=== PATIENT | male | born 1990 | race Caucasian/White ===

== ENCOUNTER 2021-06-10 15:23 | Observation (INO) ==
[2021-06-10] MEDS ORDERED: IOPAMIDOL 100 ML BOTTLE IV ONE (15:24)
[2021-06-10] MEDS ORDERED: ONDANSETRON 4 MG/2 ML VIAL IV ONE (15:48)
[2021-06-10] MEDS ORDERED: 0.9 % SODIUM CHLORIDE 1,000 ML IV ONE (15:48)
[2021-06-10] MEDS: morphine 2 MG/ML VIAL IV PRN ×2 (16:15→20:40)
[2021-06-10 16:23] LABS: Basophils # (Auto) 0.05 K/mcL (0.00-0.30); Basophils % (Auto) 0.7 % (0.0-2.0); Eosinophils # (Auto) 0.06 K/mcL (0.00-0.70); Eosinophils % (Auto) 0.8 % (0.0-7.0); Hematocrit 43.7 % (40.1-51.0); Hemoglobin 14.7 g/dL (13.7-17.5); Lymphocytes # (Auto) 0.87 K/mcL (1.50-4.80); Lymphocytes % (Auto) 11.6 % (15.5-49.0); Mean Cell Volume 82.3 fL (80.0-100.0); Mean Corpuscular HGB Conc 33.6 g/dL (31.0-36.0); Mean Platelet Volume 10.8 fL (7.4-10.4); Monocytes # (Auto) 0.94 K/mcL (0.10-0.90); Monocytes % (Auto) 12.6 % (1.0-12.0); Neutrophils % (Auto) 74.3 % (38.0-78.0); Platelet Count 217 K/mcL (140-440); RBC 5.31 M/mcL (4.63-6.08); Red Cell Distribution Width 11.9 % (11.5-14.5); WBC 7.5 K/mcL (4.5-11.0)
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
[2021-06-10 16:51] LABS: ALT/SGPT 45 U/L (<40); AST/SGOT 36 U/L (<40); Albumin 4.2 gm/dL (3.2-5.2); Albumin/Globulin Ratio 1.4 (1.0-2.3); Alkaline Phosphatase 72 U/L (39-117); Bilirubin,Total 0.5 mg/dL (0.1-1.0); Blood Urea Nitrogen 15 mg/dL (6-20); Calcium 8.8 mg/dL (8.6-10.4); Carbon Dioxide 24 mmol/L (22-30); Chloride 101 mmol/L (96-108); Glomerular Filtration Rate 88; Glucose 82 mg/dL (70-105)
[2021-06-10 18:08] LABS: Appearance,Urine CLEAR (Clear); Bilirubin,Urine Negative (Negative); Color,Urine STRAW; Culture Indicated,Urine No; Glucose,Urine (UA) Negative (Negative); Ketones,Urine Negative (Negative); Leukocyte Esterase,Urine Negative /uL (Negative); Nitrate,Urine Negative (Negative); Protein,Urine Negative (Negative); Specific Gravity,Urine 1.006 (1.000-1.035); Urine Blood 0.03 mg/dL (Negative); Urine RBC 0 /hpf (0-3); Urine Squamous Epithelial Cell 0 /hpf (0-4); Urine WBC 0 /hpf (0-4); Urobilinogen,Urine Negative
[2021-06-10] MEDS ORDERED: PIPERACILLIN SODIUM/TAZOBACTAM 3.375 GM in DEXTROSE 5% IN WATER 50 ML IV ONE (19:20)
--- NOTE | 2021-06-10 19:33 | Cat Scan Report ---
History: Right lower quadrant pain TECHNIQUE: Following injection of intravenous nonionic contrast the patient was scanned during the portal venous phase from the diaphragm through the symphysis pubis. Sagittal and coronal reformats were created. The radiation exposure was limited using dose reduction technology. FINDINGS: The liver and spleen are normal in size and homogeneous. The gallbladder is partially contracted. There are no calcified stones within the lumen. The bile ducts are nondilated. A moderate amount of ingested material is present within the stomach. This may be causing a physiologic gallbladder response. The pancreas is normal in size and homogeneous without evidence of a mass or inflammation. The adrenals and kidneys are normal. There is no kidney stone or hydronephrosis. The aorta and inferior vena cava are normal. There is no plaque formation. The distal appendix is enlarged and inflamed. It Measures 11 mm transverse dimension. No appendicolith. The base of the appendix is noninflamed. There is no evidence of abscess or perforation. The large and small intestine are otherwise normal. There are no diverticula or bowel obstruction. No adenopathy or ascites are present. No abnormality is seen in the bladder prostate or seminal vesicles. IMPRESSION: Acute appendicitis without rupture Meg Solis was called with the report Interpreted and Authenticated by: Dale Soriano 06/10/21
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
[2021-06-10] MEDS ORDERED: ONDANSETRON 4 MG/2 ML VIAL IV PRN (19:57)
[2021-06-10] MEDS: DEXTROSE 5%-1/2NS 1,000 ML IV SCH (20:40)
[2021-06-10] MEDS: PIPERACILLIN SODIUM/TAZOBACTAM 3.375 GM in DEXTROSE 5% IN WATER 50 ML IV SCH (20:48)
[2021-06-10] MEDS ORDERED: ALPRAZolam 0.25 MG TABLET PO ONE (21:55)
[2021-06-10] MEDS ORDERED: hydrOXYzine 25 MG TABLET PO ONE (21:55)
[2021-06-11] MEDS: PIPERACILLIN SODIUM/TAZOBACTAM 3.375 GM in DEXTROSE 5% IN WATER 50 ML IV SCH ×6 (03:55→21:02)
[2021-06-11] MEDS: HYDROmorphone 0.5 MG/0.5 ML SYRINGE IV PRN ×5 (04:31→15:27)
[2021-06-11] MEDS: DEXTROSE 5%-1/2NS 1,000 ML IV SCH ×3 (06:32→16:38)
[2021-06-11] MEDS ORDERED: ALPRAZolam 0.25 MG TABLET PO PRN (06:52)
[2021-06-11] MEDS ORDERED: hydrOXYzine 25 MG TABLET PO PRN (06:54)
[2021-06-11 07:26] LABS: Hemoglobin 13.9 g/dL (13.7-17.5); Mean Cell Volume 82.3 fL (80.0-100.0); Mean Corpuscular HGB Conc 34.8 g/dL (31.0-36.0); Mean Platelet Volume 10.6 fL (7.4-10.4); Platelet Count 203 K/mcL (140-440); RBC 4.86 M/mcL (4.63-6.08); Red Cell Distribution Width 11.8 % (11.5-14.5)
[2021-06-11 08:25] LABS: Blood Urea Nitrogen 11 mg/dL (6-20); Carbon Dioxide 21 mmol/L (22-30); Chloride 103 mmol/L (96-108); Glomerular Filtration Rate 99; Glucose 108 mg/dL (70-105)
[2021-06-11] MEDS ORDERED: CITALOPRAM 20 MG TABLET PO SCH ×2 (09:00)
[2021-06-11] MEDS ORDERED: LIDOCAINE HCL/PF 100 MG/5 ML SYRINGE IV ONE (09:48)
[2021-06-11] MEDS ORDERED: PHENYLephrine 1 MG/10 ML SYRINGE (ANEST) ONE (09:48)
[2021-06-11] MEDS ORDERED: DEXAMETHASONE 10 MG/ML VIAL ONE (09:48)
[2021-06-11] MEDS ORDERED: TRANEXAMIC ACID 1,000 MG/10 ML VIAL ONE (09:48)
[2021-06-11] MEDS ORDERED: MIDAZOLAM 5 MG/5 ML VIAL ONE (09:48)
[2021-06-11] MEDS ORDERED: GLYCOPYRROLATE 0.2 MG/ML VIAL IV ONE (09:48)
[2021-06-11] MEDS ORDERED: ONDANSETRON 4 MG/2 ML VIAL ONE (09:48)
[2021-06-11] MEDS ORDERED: KETAMINE 50 MG/ML Syringe (ANEST) IV ONE (09:48)
[2021-06-11] MEDS ORDERED: PROPOFOL 200 MG/20 ML VIAL IV ONE (09:48)
[2021-06-11] MEDS ORDERED: ROCURONIUM 10 MG/ML ML IV ONE (09:48)
[2021-06-11] MEDS ORDERED: SUGAMMADEX SODIUM 200 MG/2 ML VIAL IV ONE (09:48)
[2021-06-11] MEDS ORDERED: MAGNESIUM SULFATE 2 GM/50 ML BAG IV ONE (09:48)
[2021-06-11] MEDS ORDERED: fentaNYL 100 MCG/2 ML VIAL IV ONE ×2 (09:48→11:25)
[2021-06-11] MEDS ORDERED: BUPIVACAINE W/EPI 0.5% 50 ML VIAL IJ ONE (10:32)
[2021-06-11] MEDS ORDERED: PROMETHAZINE 25 MG/ML VIAL IM PRN (11:15)
[2021-06-11] MEDS ORDERED: IPRATROPIUM/ALBUTEROL 3 ML AMPUL.NEB NEB PRN (11:15)
[2021-06-11] MEDS ORDERED: LACTATED RINGERS 1,000 ML IV SCH (11:15)
[2021-06-11] MEDS ORDERED: ACETAMINOPHEN 1,000 MG/100 ML BAG IV ONE (11:15)
[2021-06-11] MEDS ORDERED: MEPERIDINE 25 MG/ML VIAL IV PRN (11:15)
[2021-06-11] MEDS ORDERED: KETOROLAC 30 MG/ML VIAL IV PRN (11:15)
[2021-06-11] MEDS ORDERED: BENZOCAINE/MENTHOL 1 LOZENGE PO PRN (11:15)
[2021-06-11] MEDS ORDERED: ONDANSETRON 4 MG/2 ML VIAL IV PRN (11:15)
[2021-06-11] MEDS ORDERED: MEPERIDINE 50 MG/ML VIAL IM PRN (11:15)
[2021-06-11] MEDS: fentaNYL 100 MCG/2 ML VIAL IV PRN ×4 (11:20→11:35)
[2021-06-11] MEDS ORDERED: oxyCODONE HCL 5 MG TABLET PO PRN (11:26)
[2021-06-11] MEDS ORDERED: ACETAMINOPHEN 500 MG TABLET PO PRN (11:27)
--- NOTE | 2021-06-11 11:33 | Brief Operative Note ---
Brief Operative Note Date of procedure: 06/11/21 Pre-op diagnosis: Acute appendicitis Post-op diagnosis: same Procedure: Laparoscopic Appendectomy Grafts/Implants: No Anesthesia: GETA Findings: mildly inflamed non gangrenous, non perforated appendix Complications: none Surgeon: Jatinder Landry Estimated blood loss (cc): 5 Specimens Removed/Pathology: other (Appendix) Condition: stable Disposition: PACU
[2021-06-11] MEDS: oxyCODONE HCL 5 MG TABLET PO PRN ×3 (15:29→22:23)
[2021-06-11] MEDS: ALPRAZolam 0.25 MG TABLET PO PRN ×2 (15:37→20:18)
--- NOTE | 2021-06-11 16:38 | EKG ---
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 Measurements Intervals [place] Rate: 81 P: 58 CT: 137 QRS: 30 QRSD: 90 T: 25 QT: 369 QTc: 429 Interpretive Statements Sinus rhythm Electronically Signed On 06-11-2021 16:37:49 PST by Alex Soriano M.D. /store/[email or web address]/[id number]
[2021-06-11] MEDS: KETOROLAC 30 MG/ML VIAL IV SCH ×2 (18:05→22:28)
[2021-06-11] MEDS: ACETAMINOPHEN 1,000 MG/100 ML BAG IV SCH (19:30)
[2021-06-11] MEDS: hydrOXYzine 25 MG TABLET PO PRN (20:18)
[2021-06-12] MEDS: PIPERACILLIN SODIUM/TAZOBACTAM 3.375 GM in DEXTROSE 5% IN WATER 50 ML IV SCH ×2 (01:20→07:35)
[2021-06-12] MEDS: oxyCODONE HCL 5 MG TABLET PO PRN ×4 (01:20→10:38)
[2021-06-12] MEDS: DEXTROSE 5%-1/2NS 1,000 ML IV SCH (01:21)
[2021-06-12] MEDS: ACETAMINOPHEN 1,000 MG/100 ML BAG IV SCH (04:25)
--- NOTE | 2021-06-12 06:51 | General Surgery Progress Note ---
SUBJECTIVE Subjective Patient information: Note initiated : 06/12/21 at 6:49 am Service Date, if different from initiated Date: [] Patient: Ganga Vargas 30 y/o M admitted on 06/10/21 for abd pain. Chief Complaint: [Acute Appendicitis post Appendectomy] Feels much better this am, pain well controlled, hoping for discharge Constitutional Vitals: Vital Signs Temp Pulse Resp BP Pulse Ox 98.3 F 79 16 96/55 96 06/12/21 04:17 06/12/21 04:17 06/12/21 04:17 06/12/21 04:17 06/12/21 04:17 Period Temp Pulse Resp BP Sys/Alliosn Pulse Ox Last 24 Hr 97.7 F-100.4 F 79-106 - 96-139/55-89 90-100 Intake and Output 06/11/21 06/12/21 06/12/21 21:59 05:59 13:59 Intake Total 340 2100 Output Total 1260 1250 Balance -920 850 Weight 223 lb 1 oz Intake & Output: Intake & Output 06/11/21 06/12/21 06/12/21 21:59 05:59 13:59 Intake Total 340 2100 Output Total 1260 1250 Balance -920 850 Weight 223 lb 1 oz Intake: IV 100 1200 Dextrose 5%-1/2Ns IV Solution 1 1000 ,000 ml @ 100 mls/hr IV .Q10H [facility] Rx#:[id number] Zosyn 3.375 gm In Dextrose 5% 100 in Water 50 ml @ 100 mls/hr IV Q6H [facility] Rx#:[id number] Oral 240 900 Output: Void Amount 1260 1250 Other: Urine Appearance Clear Clear Urine Color Pale Bright Yellow General appearance: cooperative and no acute distress Respiratory Additional comments: no respiratory distress Cardiovascular Cardiovascular exam: Present normal rate and rhythm and RRR GI/Abdominal Additional comments: soft and non tender, non distended, dressings look good Extremities Exam Additional comments: well perfused A/P Narrative A/P Narrative: POD #1 Lap Appendectomy Doing Well Home today Clinic follow up in 1-2 weeks, sooner if needed Time Spent With Patient Time: Total time spent is greater than 50% in coordination of care (as documented) at patient's floor/unit and/or counseling patient:
[2021-06-12] MEDS: KETOROLAC 30 MG/ML VIAL IV SCH (07:34)
[2021-06-12 07:45] LABS: Hematocrit 38.9 % (40.1-51.0); Hemoglobin 13.6 g/dL (13.7-17.5); Mean Platelet Volume 10.5 fL (7.4-10.4); Platelet Count 247 K/mcL (140-440); Red Cell Distribution Width 11.6 % (11.5-14.5)
--- NOTE | 2021-06-12 08:13 | Operative Note ---
DATE OF OPERATION: 06/11/2021 PREOPERATIVE DIAGNOSIS: Acute appendicitis. POSTOPERATIVE DIAGNOSIS: Acute appendicitis. OPERATIVE PROCEDURE: Laparoscopic appendectomy. SURGEON: Jatinder Landry M.D. MIG WELDER: None. ANESTHESIA: General. PREOPERATIVE MEDICATIONS: Zosyn 3.375 g IV. INDICATIONS: The patient is a 30-year-old male who presented to the ER last night with roughly a 48-hour history of worsening abdominal pain that began in a generalized manner, but then localized in clarity to the right lower quadrant. He was seen in the ER, felt to be tender in that area. CT scan confirmed findings felt to be consistent with acute appendicitis and surgery consultation was obtained. He did indeed have localized tenderness in the area. The remainder of his exam was benign. We recommended surgery and concurred with the diagnosis. Risks, benefits, potential complications, and alternative treatment options were all discussed at length. These include, but not limited to bleeding, infection, cosmetic dissatisfaction, abnormal scarring, trocar injury, injury to surrounding structures, bleeding, infection, potential need for drain placement, conversion to open, secondary procedures and other issues as well as the option to not undergo surgery to pursue a nonoperative antibiotic based approach. All of this was reviewed with him. He wished to undergo surgery, which is what we recommended, and we proceeded with informed consent. DESCRIPTION OF PROCEDURE: The patient was taken to the OR and placed supine on the OR table, placed under general anesthesia and intubated. Bilateral SCDs and pressure sensitive areas were carefully padded. His arms were tucked at the sides under the direction of the entire OR team and he was carefully positioned on the OR table by the OR team. His abdomen was then shaved and then widely prepped and draped in a sterile fashion. Procedure began with access of the peritoneal cavity utilizing a 0-degree, 5-mm scope through a Visiport in the right upper abdomen. Once we had obtained peritoneal access pneumoperitoneum was obtained with high-flow CO2 insufflation. Once we did obtain good insufflation, we examined the area of access with a 0-degree scope. There was no evidence of injury. We then changed out the 0 degree for a 30 degree and placed our remaining trocars. This included a 5 mm supraumbilical trocar, a 5 mm left lower abdominal trocar and then we resited the camera to the periumbilical site and switched out the right upper abdominal 5 mm trocar for a 12 mm trocar under direct vision. The patient was then placed in a slight Trendelenburg position, airplaned towards the left side. The cecum was identified and a very long somewhat indurated and swollen-appearing appendix was identified. It was adherent to the posterior pelvic and abdominal sidewall and retroperitoneum with avascular attachments. These were taken down sharply. It was then grasped mid body and elevated away from the underlying cecum. We were then able to easily make a window at the base of the mesoappendix and then transect the appendix just above its junction point with the cecum utilizing a 35 mm endovascular battery powered Endo-TIM stapler, an additional single firing of the stapler to transect the mesoappendix without difficulty. This liberated the appendix in its entirety. It was placed in an EndoCatch and removed through the right upper abdominal trocar site without difficulty and sent to pathology. We then irrigated gently in the area after reestablishing the trocar position and pneumoperitoneum. The mesoappendiceal staple line appeared to be a bit oozy. We applied several applications of Surgicel and gently irrigated the area out, watched this for a while and it appeared to be and become very hemostatic without issue. The staple line on the appendiceal stump looked just fine without any evidence of bleeding of any sort. Of note, no thermal energy or cautery was used in the conduction of this case. Once we were satisfied that there appeared to be no active residual bleeding, we then took out the right upper abdominal trocar and then closed this with an 0 Vicryl suture utilizing the inlet fascial closure device. We then removed our remaining trocars under direct vision to make sure there was no active bleeding, none was seen. Pneumoperitoneum was relieved. We then closed the incisions with interrupted 3-0 Vicryl and 4-0 Monocryl sutures, respectively. Steri-Strips and sterile dressings were applied. The patient was awakened, extubated, and transferred to PACU in satisfactory condition. No apparent complications or issues. Sponge and instrument counts were correct. Findings were discussed above. BW:cristi Job ID: [id number] Doc ID: [id number] Jatinder Landry M.D.
[2021-06-12] MEDS: hydrOXYzine 25 MG TABLET PO PRN (08:20)
[2021-06-12] MEDS: ALPRAZolam 0.25 MG TABLET PO PRN (08:20)
--- NOTE | 2021-06-12 10:42 | Surgical Pathology Report ---
Histology Microscopic Diagnosis Specimen A- APPENDIX, APPENDECTOMY: --- ACUTE APPENDICITIS. ([facility]) Clinical History Abdominal pain. Procedural Impression Acute appendicitis. Gross Description Received in formalin designated as appendix, is a self-mcdonough appendix measuring 6.9 cm in length by 0.8 cm in diameter. The resection margin is stapled and this is inked black. The serosa is self-mcdonough with a focal area of possible exudate on the surface. Sectioning reveals red viscous tissue. Grossly there are no perforations identified. Lead Manufacturing Engineer sections are submitted in one cassette. (SCB:aj) Electronically Signed Sherley Benitez MD, FCAP Electronically Signed 06/12/2021 10:41
== END 2021-06-12 10:55 | disposition home or self-care (01) ==
LOC: ED 15:23 → MEDSUR 15:23
PROVIDERS: ADMIT Surgery Surgical Critical Care; ATTEND Surgery Surgical Critical Care